=== PATIENT | female | born 1985 | race Caucasian/White ===

== ENCOUNTER 2016-10-07 21:22 | Emergency (ER) | payer BC ==
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
[2016-10-07 22:05] LABS: BASOPHIL % 0.2 %; EOSINOPHIL # 0.2 K/uL (0.0-0.5); HEMATOCRIT 40.5 % (33.0-46.0); HEMOGLOBIN 13.5 g/dL (11.0-15.0); IMMATURE GRANULOCYTE % 0.4 %; LYMPHOCYTE # 2.9 K/uL (0.8-4.0); LYMPHOCYTE % 33.7 %; MCHC 33.3 gm/dL (32.0-36.5); MCV 86.9 fl (83.0-98.0); MONOCYTE # 0.6 K/uL (0.0-1.0); MONOCYTE % 6.7 %; MPV 8.9 fl (9.4-12.4); NEUTROPHIL # (ANC) 4.9 K/uL (1.8-7.8); NRBC % 0 /100WBC (0-0.00); PLATELET COUNT 271 K/uL (150-450); RBC 4.66 M/uL (3.50-5.50); RDW-CV 13.6 % (11.9-14.6); WBC 8.5 K/uL (4.0-11.0)
[2016-10-07 22:22] LABS: ALBUMIN 3.3 gm/dL (3.5-5.0); ALK PHOS 70 IU/L (33-138); ALT 27 IU/L (12-78); ANION GAP 10.9 (10.0-19.0); AST 19 IU/L (10-40); BLOOD UREA NITROGEN 15 mg/dL (6-24); CALCIUM 8.3 mg/dL (8.5-10.5); CHLORIDE 109 mMol/L (96-110); CO2 25 mMol/L (22-32); CREATININE 0.8 mg/dL (0.5-1.1); ESTIMATED GFR (MDRD EQUATION) > 60; POTASSIUM 3.9 mMol/L (3.7-5.1); SODIUM 141 mMol/L (135-145); TOTAL BILIRUBIN 0.2 mg/dL (0.0-1.5)
[2016-10-07 22:25] LABS: BILIRUBIN URINE NEGATIVE (NEGATIVE); BLOOD URINE NEGATIVE /UL (NEGATIVE); COLOR URINE YELLOW (YELLOW); GLUCOSE URINE NEGATIVE (NEGATIVE); KETONE URINE 5 mg/dL (NEGATIVE); LEUKOCYTES URINE NEGATIVE /UL (NEGATIVE); NITRITE URINE NEGATIVE (NEGATIVE); PROTEIN URINE NEGATIVE (NEGATIVE); SPEC GRAVITY URINE 1.025 (1.003-1.035); TURBIDITY URINE CLEAR (CLEAR); UROBILINOGEN URINE NORMAL (NORMAL)
== END 2016-10-07 22:49 | disposition disaster alternative care site (69) ==
LOC: GMED 21:22
PROVIDERS: Nurse Practitioner Family
DX: L55.0 Sunburn of first degree (principal); E86.0 Dehydration; F17.210 Nicotine dependence, cigarettes, uncomplicated; Z98.51 Tubal ligation status